=== PATIENT | female | born 1990 | race Caucasian/White ===

== ENCOUNTER 2018-07-13 17:25 | Emergency (ER) | payer OTHER, SELFPAY ==
[2018-07-13] MEDS ORDERED: HYDROcodone/Acetaminophen 10/325 mg Tablet ONE (17:46)
[2018-07-13] MEDS ORDERED: Famotidine 20 MG TAB ONE (17:47)
[2018-07-13] MEDS ORDERED: diphenhydrAMINE 25 MG CAP ONE (17:47)
[2018-07-13] MEDS ORDERED: Ibuprofen 200 MG TAB ONE (17:47)
[2018-07-13] MEDS ORDERED: predniSONE 20 MG TAB ONE (17:47)
== END 2018-07-13 18:50 | disposition home or self-care (01) ==
LOC: ERS 17:25
DX: T63.451A Toxic effect of venom of hornets, accidental (unintentional), initial encounter (principal); F17.210 Nicotine dependence, cigarettes, uncomplicated
CPT/HCPCS: 99283; J7506

== ENCOUNTER 2021-07-12 12:57 | Emergency (ER) | payer SELFPAY ==
[2021-07-12] MEDS ORDERED: Ketorolac Tromethamine 30 MG/ML VIAL ONE (15:09)
== END 2021-07-12 16:33 | disposition home or self-care (01) ==
LOC: ERS 12:57
DX: S00.33XA Contusion of nose, initial encounter (principal); Y04.0XXA Assault by unarmed brawl or fight, initial encounter; F17.210 Nicotine dependence, cigarettes, uncomplicated
CPT/HCPCS: 70450; 96372; J1885

== ENCOUNTER 2021-09-13 05:49 | Emergency (ER) | payer SELFPAY ==
[2021-09-13] MEDS ORDERED: Ketorolac Tromethamine 30 MG/ML VIAL ONE (06:21)
== END 2021-09-13 06:38 | disposition home or self-care (01) ==
LOC: ERS 05:49
DX: S16.1XXA Strain of muscle, fascia and tendon at neck level, initial encounter (principal); F17.210 Nicotine dependence, cigarettes, uncomplicated
CPT/HCPCS: 96372; 99283; J1885

== ENCOUNTER 2025-07-15 04:50 | Emergency (ER) | payer SELFPAY ==
[2025-07-15] MEDS ORDERED: Acetaminophen 500 MG TAB ONE (05:41)
[2025-07-15] MEDS ORDERED: Ketorolac Tromethamine 30 MG (1 mL) VIAL ONE (05:41)
[2025-07-15] MEDS ORDERED: Cyclobenzaprine 10 MG TAB ONE (05:41)
== END 2025-07-15 06:19 | disposition home or self-care (01) ==
LOC: ERS 04:50
DX: M54.50 Low back pain, unspecified (principal); F17.210 Nicotine dependence, cigarettes, uncomplicated
CPT/HCPCS: 96372; 99283; J1885